=== PATIENT | male | born 1990 | race Caucasian/White ===

== ENCOUNTER 2023-05-13 09:22 | Outpatient (CLI) | payer OTHER ==
--- NOTE | 2023-05-13 14:43 | MRI Report ---
PROCEDURE: KNEE WO - RT INDICATIONS: KNEE PAIN TECHNIQUE: Noncontrast sagittal PD fast spin echo and T2 fast spin echo with fat saturation, sagittal 3-D gradie nt sequence with fat saturation; coronal T1 spin echo and PD fast spin echo with fat saturation, and axial PD fast spin echo with fat saturation through the knee. COMPARISON: None. FINDINGS: Image quality: Excellent. Menisci: Signal abnormality within posterior horn of medial meniscus is seen extending to inferior ar ticulating surface suggestive of subtle oblique tear. The lateral meniscus is intact. The meniscal ro ot ligaments appear intact. Cruciate ligaments: The anterior cruciate ligament is mildly thickened. The posterior cruciate ligam ent is intact. Medial structures: The medial collateral ligament appears thickened at its femoral insertion. Visual ized portions of the pes anserinus tendons appear normal. No abnormal bursal fluid. Lateral structures: The lateral collateral ligament is thickened. The long and short heads of the bi ceps femoris tendon appear intact. The popliteus tendon appears normal. Edema is noted deep to the i liotibial band and lateral to the lateral femoral condyle. Anterior structures: Distal quadriceps tendinosis and proximal patella tendinosis at their patellar i nsertion is seen. Patellar alignment is normal. No femoral trochlear dysplasia or ventral trochlear prominence. No edema in the infrapatellar fat pad. Bones and cartilage: No bone marrow contusions or fractures. 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 Joint space: There is small knee joint fluid. No Henry's cyst. Normal appearing synovial plicae ar e incidentally noted. IMPRESSION: 1. Finding is concerning for very subtle oblique tear involving posterior horn of medial meniscus ext ending to inferior articulating surface. The lateral meniscus is intact. 2. Low-grade ACL sprain. The PCL is intact. 3. Low-grade proximal MCL and LCL sprain. Edema is seen deep to the iliotibial band concerning for il iotibial band syndrome. 4. Distal quadriceps tendinosis and proximal patella tendinosis. 5. No marrow edema. No fracture or dislocation. 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 Small joint effusion, no gross loose bodies. Reviewed by: Dangelo Dale MD on 05/13/2023 2:42 PM PST Approved by: Dangelo Dale MD on 05/13/2023 2:42 PM [facility] Station ID: [id number]
== END 2023-05-13 09:23 | disposition home or self-care (01) ==
LOC: DI 09:22
PROVIDERS: ATTEND Student in an Organized Health Care Education/Training Program
DX: S83.511A Sprain of anterior cruciate ligament of right knee, initial encounter (principal); S83.421A Sprain of lateral collateral ligament of right knee, initial encounter; S83.411A Sprain of medial collateral ligament of right knee, initial encounter; M67.863 Other specified disorders of tendon, right knee; M94.261 Chondromalacia, right knee; M25.461 Effusion, right knee

== ENCOUNTER 2023-08-20 09:25 | Outpatient (CLI) | payer OTHER ==
--- NOTE | 2023-08-20 11:53 | MRI Report ---
PROCEDURE: Foot LT WO INDICATIONS: L FOOT INJURY TECHNIQUE: Noncontrast sagittal T1 spin echo and T2 fast spin echo with fat saturation, long-axis T1 spin echo a nd T2 fast spin echo with fat saturation, short-axis proton density fast spin echo and T2 fast spin e cho with fat saturation through the forefoot. COMPARISON: None. FINDINGS: Image quality: Excellent. Bones and joints: No bone marrow contusions or metatarsal stress fractures. The sesamoid bones appe ar in expected positions, without internal edema. No metatarsophalangeal joint degeneration. No int raosseous lesions. Soft tissues: The visualized plantar foot muscles demonstrate normal signal and bulk. Visualized fl exor and extensor tendons appear intact, without tenosynovitis. Distal peroneus brevis tendon insert ion is intact. Tendinosis and low-grade partial-thickness tear involving distal peroneus longus inser tion in first metatarsal base is seen. No soft tissue ganglion cysts or bursal fluid collections. Pr inciple Lisfranc ligament is intact. Sagittal images demonstrate no evidence for plantar plate tears. IMPRESSION: 1. No marrow edema. No fracture or dislocation. No metatarsal stress fractures. 2. Principal Lisfranc ligament is intact. 3. Tendinosis and low-grade partial-thickness involving distal peroneus longus tendon insertion at th e plantar lateral aspect of first metatarsal base. Distal peroneus brevis tendon is intact. Extensor and flexor tendons are intact. Reviewed by: Dangelo Dale MD on 08/20/2023 11:52 AM PDT Approved by: Dangelo Dale MD on 08/20/2023 11:52 AM PDT Station ID: [id number]
== END 2023-08-20 09:26 | disposition home or self-care (01) ==
LOC: DI 09:25
PROVIDERS: ATTEND Preventive Medicine Aerospace Medicine
DX: S96.812A Strain of other specified muscles and tendons at ankle and foot level, left foot, initial encounter (principal)

== ENCOUNTER 2023-09-03 08:13 | Outpatient (CLI) | payer OTHER ==
--- NOTE | 2023-09-03 13:43 | MRI Report ---
PROCEDURE: Ankle LT WO INDICATIONS: ACHILLES TENDONITIS TECHNIQUE: Noncontrast sagittal T1 spin echo and T2 fast spin echo with fat saturation, axial proton density fas t spin echo and T2 fast spin echo with fat saturation, coronal T1 spin echo and T2 fast spin echo wit h fat saturation through the ankle/hindfoot. COMPARISON: Left foot MRI dated 08/20/2023. FINDINGS: Image quality: Excellent. Bones and joints: No bone marrow contusions or fractures. No hindfoot coalitions. No osteochondral injuries of the talar dome. No pathologic joint effusions. Medial structures: The posterior tibialis, flexor digitorum longus, and flexor hallucis longus tendo ns are intact. Small amount of fluid distending flexer tendon sheath is seen. The posterior tibial ne urovascular bundle appears normal within the tarsal tunnel, without extrinsic mass effect. The delto id ligament and spring ligament are intact. Lateral structures: The anterior talofibular, calcaneofibular, and posterior talofibular ligaments a ppear intact. More superiorly, the anterior and posterior tibiofibular ligaments appear normal, as i s the intermalleolar ligament. The tibiofibular syndesmosis is normal in width at 2 mm or less. The peroneus longus and brevis tendons are thickened with small amount of fluid distending tendon sheath at the level of lateral malleolus tip extending to the level of calcaneocuboid joint. The sinus tars i demonstrates normal fatty signal, without edema, fibrosis, or cyst formation. Visualized sinus tar si components (cervical ligament, interosseous talocalcaneal ligament, roots of the inferior extensor retinaculum) appear normal. Anterior structures: The tibialis anterior, extensor hallucis longus, and extensor digitorum longus tendons appear intact. Posterior and plantar structures: Achilles tendon is thickened extending to its posterior calcaneal insertion. Soft tissue edema surrounding plantar fascia at its plantar calcaneal insertion is seen. T hickened medial band of plantar fascia near its calcaneal insertion is noted with intrasubstance T2 h yperintense signal and a fluid-filled gap measures 6 x 5 mm in size. No abductor digiti quinti muscle atrophy to suggest Azul neuropathy. IMPRESSION: 1. Moderate grade partial-thickness tear involving medial band of plantar fascia at its plantar calca mike insertion. No full-thickness plantar fascial rupture. 2. Distal Achilles tendinosis at its posterior calcaneal insertion. No Achilles tendon rupture. 3. No marrow edema. No fracture or dislocation. No osteochondral injuries of talar dome. 4. Low-grade tenosynovitis involving flexor tendons area of low to moderate grade tenosynovitis invol ving peroneus tendons at the level of lateral malleolus extending to the level of calcaneocuboid join t. 5. Medial and lateral ankle ligaments are intact. Reviewed by: Dangelo Dale MD on 09/03/2023 1:42 PM PDT Approved by: Dangelo Dael MD on 09/03/2023 1:42 PM PDT Station ID: [id number]
== END 2023-09-03 08:14 | disposition home or self-care (01) ==
LOC: DI 08:13
DX: S96.822A Laceration of other specified muscles and tendons at ankle and foot level, left foot, initial encounter (principal); M67.874 Other specified disorders of tendon, left ankle and foot; M65.9 Synovitis and tenosynovitis, unspecified